=== PATIENT | female | born 1930 | race Caucasian/White ===

== ENCOUNTER 2018-07-16 08:29 | Emergency (ER) | payer MEDICARE, MEDICAID ==
[2018-07-16 08:38] VITALS: BP 121/62
--- NOTE | 2018-07-16 10:08 | CR ---
Chest and left ribs: Frontal view of the chest was obtained as well as additional views of the left ribs. Comparison: Prior chest x-ray of 09/20/09. Heart is slightly enlarged. Mild tortuosity of the thoracic aorta is seen. Lungs show mild increased lung markings which appear chronic. Bony structures are osteopenic. Fracture is noted within the approximate left eighth rib. No additional rib fracture is seen although due to osteoporosis and additional nondisplaced fracture could be missed. No pneumothorax is seen. Impression: 1. Fracture within the approximate left eighth rib. 2. Osteoporosis which makes of dilation for nondisplaced rib fracture difficult. 3. Other incidental findings which are stable. Diagnostic code #3
--- NOTE | 2018-07-16 10:12 | CR ---
Pelvis and right hip: AP view of the pelvis was obtained as well as AP and frog-leg lateral views of the right hip. Comparison: Prior pelvis and right hip exam of 07/25/15. Bony structures are osteoporotic. Joint spaces within both hips are preserved. No fracture or other abnormality is identified. Impression: 1. Nothing acute is appreciated on AP pelvis or on two-view right hip exam. Diagnostic code #2
--- NOTE | 2018-07-16 11:05 | EDM.PDOC ---
ED HPI GENERAL MEDICAL PROBLEM - General Chief Complaint: Chest Pain Stated Complaint: [facility] Time Seen by Provider: 07/16/18 08:35 Source of Information: Reports: Patient, RN Notes Reviewed - History of Present Illness INITIAL COMMENTS - FREE TEXT/NARRATIVE: 87-year-old lady is been brought here by [facility] from [facility] with left chest pain. She fell about a week ago and then may have fallen again during the night. This morning she is complaining of left- sided chest pain which seems to be worse with deep breathing and movement. Does have some dementia. She does not remember falling. She is not able to give much detail for history. At rest on the cot she has no pain or difficulty breathing. Much of the history is obtained from her daughter who is present. Treatments MANAGER FINANCIAL REPORTING: Reports: IV/IO Left Middle Chest Pain Score (Numeric/FACES): 6 - Related Data Allergies Allergy/AdvReac Type Severity Reaction Status Date / Time nitrofurantoin Allergy Cannot Verified 07/16/18 08:34 [From Macrobid] Remember nitrofurantoin Allergy Cannot Verified 07/16/18 08:34 macrocrystalline Remember [From Macrobid] Home Meds: Home Meds Acetaminophen [Tylenol] 650 mg PO QID PRN 07/25/15 [History] Aspirin [Halfprin] 81 mg PO DAILY 07/25/15 [History] Calcium Carbonate [Calcium] 600 mg PO DAILY 07/25/15 [History] Carboxymethylcellulose Sodium [Refresh Celluvisc] 1 drop EYEBOTH QID 07/25/15 [ History] Cranberry 850 mg PO BID 07/25/15 [History] Ferrous Sulfate [Iron] 325 mg PO BID 07/25/15 [History] Lutein/Minerals/Vit A,C & E [Ocuvite] 1 tab PO DAILY 07/25/15 [History] Methenamine Hippurate 1 gm PO DAILY 07/25/15 [History] Simvastatin [Zocor] 10 mg PO DAILY 07/25/15 [History] Ciprofloxacin [Ciprofloxacin HCl] 250 mg PO BID 07/16/18 [History] Donepezil HCl [Aricept] 10 mg PO DAILY 07/16/18 [History] Mirtazapine [Remeron] 7.5 mg PO QPM 07/16/18 [History] Polyethylene Glycol 3350 [MiraLAX] 17 gm PO DAILY 07/16/18 [History] traMADol HCl [Tramadol HCl] 50 mg PO QID PRN 07/16/18 [History] Past Medical History HEENT History: Reports: Macular Degeneration Other HEENT History: tear film imbalance Cardiovascular History: Reports: High Cholesterol, Hypertension Genitourinary History: Reports: Other (See Below) Other Genitourinary History: neurogenic bladder and does straight catheterizations 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 Denies: Shortness of Breath, Cough Cardiovascular: Reports: Chest Pain GI/Abdominal: Denies: Abdominal Pain, Vomiting Musculoskeletal: Reports: Joint Pain (She also has been complaining of some discomfort right hip.). Denies: Neck Pain, Shoulder Pain, Arm Pain, Back Pain Skin: Reports: No Symptoms Neurological: Reports: Confusion (Chronic). Denies: Weakness (No focal weakness ) ED EXAM, GENERAL - Physical Exam Exam: See Below Exam Limited By: Other (Patient is moderately confused, does have chronic dementia) General Appearance: Alert, No Apparent Distress Eye Exam: Bilateral Eye: PERRL Throat/Mouth: Normal Inspection Neck: Supple Respiratory/Chest: No Respiratory Distress, Lungs Clear, Normal Breath Sounds, Other (There is tenderness of the left lower lateral rib cage, no bruising or swelling visible) GI/Abdominal: Soft, Non-Tender. No: Guarding Extremities: Other (There is mild tenderness of the right lateral hip, right lateral pelvis, however she does allow me to help her move the leg with out apparent discomfort at the hip joint) Neurological: No Motor/Sensory Deficits Skin Exam: Warm, Dry, Normal Color Course - Vital Signs Last Recorded V/S: Last Vital Signs Temp 98.4 F 07/16/18 08:34 Pulse 61 07/16/18 08:34 Resp 13 07/16/18 08:34 BP 121/62 07/16/18 08:34 Pulse Ox 100 07/16/18 08:34 - Orders/Labs/Meds Labs: Laboratory Tests 07/16/18 07/16/18 Range/Units 09:42 09:42 WBC 8.17 (3.98-10.04) K/mm3 RBC 3.61 L (3.98-5.22) M/mm3 Hgb 11.4 (11.2-15.7) gm/L Hct 35.6 (34.1-44.9) % MCV 98.6 H (79.4-94.8) fl MCH 31.6 (25.6-32.2) pg MCHC 32.0 L (32.2-35.5) g/dl RDW Std Deviation 44.9 (36.4-46.3) fL Plt Count 268 (182-369) K/mm3 MPV 9.5 (9.4-12.3) fl Neut % (Auto) 63.3 (34.0-71.1) % Lymph % (Auto) 26.8 (19.3-51.7) % Morris % (Auto) 7.6 (4.7-12.5) % Eos % (Auto) 1.5 (0.7-5.8) Baso % (Auto) 0.4 (0.1-1.2) % Neut # (Auto) 5.18 (1.56-6.13) K/mm3 Lymph # (Auto) 2.19 (1.18-3.74) K/mm3 Morris # (Auto) 0.62 H (0.24-0.36) K/mm3 Eos # (Auto) 0.12 (0.04-0.36) K/mm3 Baso # (Auto) 0.03 (0.01-0.08) K/mm3 Sodium 143 (136-145) mEq/L Potassium 3.5 (3.5-5.1) mEq/L Chloride 108 H (98-107) mEq/L Carbon Dioxide 23 (21-32) mEq/L Anion Gap 15.5 H (5-15) BUN 21 H (7-18) mg/dL Creatinine 1.4 H (0.55-1.02) mg/dL Est Cr Clr Drug Dosing 21.55 mL/min Estimated GFR (MDRD) 35 (>60) mL/min BUN/Creatinine Ratio 15.0 (14-18) Glucose 137 H (83-115) mg/dL Calcium 9.1 (8.5-10.1) mg/dL Total Bilirubin 0.4 (0.2-1.0) mg/dL AST 15 (15-37) U/L ALT 26 (14-59) U/L Alkaline Phosphatase 114 (46-116) U/L Total Protein 6.4 (6.4-8.2) g/dl Albumin 3.5 (3.4-5.0) g/dl Globulin 2.9 gm/dL Albumin/Globulin Ratio 1.2 (1-2) - Re-Assessments/Exams Free Text/Narrative Re-Assessment/Exam: 07/16/18 11:25 There is a visible fracture of the left lower lateral rib, radiologist reading it as approximately left eighth, possible hairline fracture of the ninth without displacement. Departure - Departure Time of Disposition: 11:02 Disposition: Home, Self-Care 01 Condition: Fair Clinical Impression: Fall Qualifiers: Encounter type: initial encounter Qualified Code(s): W19.XXXA - Unspecified fall, initial encounter Rib fracture Qualifiers: Encounter type: initial encounter Rib fracture type: single rib Fracture type: closed Laterality: left Qualified Code(s): S22.32XA - Fracture of one rib, left side, initial encounter for closed fracture Instructions: Rib Fracture, [id number] Referrals: Pedro Estrada MD [Primary Care Provider] - Forms: ED Department Discharge Additional Instructions: Tylenol 500 mg 3 to 4 times daily, use walker to help with balance and discomfort moving, Follow up with Camryn Oliva in about 4 to 6 days, call for appt. , return to ED as needed if symptoms worsening in any way.
== END 2018-07-16 11:30 | disposition home or self-care (01) ==
LOC: JD.ED 08:29
DX: S22.32XA Fracture of one rib, left side, initial encounter for closed fracture (principal); I10 Essential (primary) hypertension; E78.00 Pure hypercholesterolemia, unspecified; E11.9 Type 2 diabetes mellitus without complications; E03.9 Hypothyroidism, unspecified; Z79.899 Other long term (current) drug therapy; Z79.82 Long term (current) use of aspirin; Z88.8 Allergy status to other drugs, medicaments and biological substances; W19.XXXA Unspecified fall, initial encounter
CPT/HCPCS: 36415; 71101-26-LT; 71101-LT; 73502-26-RT; 73502-RT; 80053; 85025; 99283; 99283-25